=== PATIENT | male | born 1985 | race Asian ===

== ENCOUNTER 2017-09-28 11:23 | Emergency (ER) | payer SELFPAY ==
[2017-09-28] MEDS ORDERED: cefTRIAXone 250 MG VIAL IM ONE (11:31)
[2017-09-28] MEDS ORDERED: DOXYCYCLINE HYCLATE 100 MG CAP/TAB PO ONE (11:31)
[2017-09-28] MEDS ORDERED: KETOROLAC 30 MG/1 ML SDV IM ONE (11:33)
--- NOTE | 2017-09-28 11:35 | EDPHY ---
H & P Time Seen by Provider: 09/28/17 11:27 HPI/ROS: CHIEF COMPLAINT: Left stick HISTORY OF PRESENT ILLNESS: The patient is a 32-year-old healthy young man who comes to the emergency department complaining of left testicular pain that has been increasing daily for the last 4 days. No fever. He states that his urine and ejaculate EpiPen slightly yellow after taking azo. He has not had any spontaneous discharge. He is sexually active. He denies trauma. He states that he has pain in the cord above his testicle. REVIEW OF SYSTEMS: Constitutional: denies: chills, fever, recent illness, recent injury EENTM: denies: blurred vision, double vision, nose congestion Respiratory: denies: cough, shortness of breath Cardiac: denies: chest pain, irregular heart rate, lightheadedness, palpitations Gastrointestinal/Abdominal: denies: abdominal pain, diarrhea, nausea, vomiting, blood streaked stools Genitourinary: denies: dysuria, frequency, hematuria, pain Musculoskeletal: denies: joint pain, muscle pain Skin: denies: lesions, rash, jaundice, bruising Neurological: denies: headache, numbness, paresthesia, tingling, dizziness, weakness Hematologic/Lymphatic: denies: blood clots, easy bleeding, easy bruising Immunologic/allergic: denies: HIV/AIDS, transplant EXAM: GENERAL: Well-appearing, well-nourished and in no acute distress. HEAD: Atraumatic, normocephalic. EYES: Pupils equal round and reactive to light, extraocular movements intact, sclera anicteric, conjunctiva are normal. ENT: TMs normal, nares patent, oropharynx clear without exudates. Moist mucous membranes. NECK: Normal range of motion, supple without lymphadenopathy or JVD. LUNGS: Breath sounds clear to auscultation bilaterally and equal. No wheezes rales or rhonchi. HEART: Regular rate and rhythm without murmurs, rubs or gallops. ABDOMEN: Soft, nontender, normoactive bowel sounds. No guarding, no rebound. No masses appreciated. : Normal cremasteric reflex, left-sided epididymal tenderness and swelling. Mild erythema, no blue dot visible. BACK: No CVA tenderness, no spinal tenderness, step-offs or deformities EXTREMITIES: Normal range of motion, no pitting or edema. No clubbing or cyanosis. NEUROLOGICAL: Cranial nerves II through XII grossly intact. Normal speech, normal gait. 5/5 strength, normal movement in all extremities, normal sensation PSYCH: Normal mood, normal affect. SKIN: Warm, dry, normal turgor, no visible rashes or lesions. Source: Patient Exam Limitations: No limitations - Medical/Surgical History Hx Asthma: No Hx Chronic Respiratory Disease: No Hx Diabetes: No Hx Cardiac Disease: No Hx Renal Disease: No Hx Cirrhosis: No Hx Alcoholism: No - Family History Significant Family History: No pertinent family hx - Social History Alcohol Use: Sober Drug Use: None Constitutional: Initial Vital Signs Temperature (C) 36.6 C 09/28/17 11:34 Heart Rate 85 09/28/17 11:34 Respiratory Rate 20 09/28/17 11:34 Blood Pressure 110/55 L 09/28/17 11:34 O2 Sat (%) 97 09/28/17 11:34 O2 Delivery Mode Room Air Allergies/Adverse Reactions: No Known Allergies Allergy (Unverified 09/28/17 11:33) Home Medications: Medication Instructions Recorded levOFLOXACIN [levAQUIN] 750 mg PO DAILY #10 tab 09/28/17 Medical Decision Making - Diagnostics Imaging Results: Imaging Impressions Testicular Ultrasound 09/28/17 11:29 Impression: 1. Left epididymitis. 2. No testicular torsion. 3. No intratesticular masses. 4. Minimal bilateral hydroceles. Findings and recommendations discussed with Emergency Department physician, Dev Hill, at 1232 hours, 09/28/2017. Final report concurs with initial preliminary interpretation. Imaging: Discussed imaging studies w/ order desk caller Radiologist ED Course/Re-evaluation: 12:45 p.m. the patient has epididymitis. He does admit to having anal sex occasionally. I will switch him to Levaquin for 10 days. He has already had Rocephin. Differential Diagnosis: Partial list of the Differential diagnosis considered include but were not limited to; epididymitis, torsed testicle, torsed testicular appendix and although unlikely based on the history and physical exam, I also considered trauma, cellulitis, hernia. I discussed these differential diagnoses and the plan with the patient as well as the usual and expected course. The patient understands that the diagnosis is provisional and that in medicine we are not always correct and that further workup is often warranted. Usual and customary warnings were given. All of the patient's questions were answered. The patient was instructed to return to the emergency department should the symptoms at all worsen or return, otherwise to followup with the physician as we discussed. - Data Points Laboratory Results: 09/28/17 09/28/17 11:55 11:55 Urine Color YELLOW Urine Appearance CLOUDY Urine pH 6.0 (5.0-7.5) Ur Specific [place] 1.020 (1.002-1.030) Urine Protein 2+ H (NEGATIVE) Urine Ketones 2+ H (NEGATIVE) Urine Blood 2+ H (NEGATIVE) Urine Nitrate NEGATIVE (NEGATIVE) Urine Bilirubin NEGATIVE (NEGATIVE) Urine Urobilinogen 0.2 EU EU (0.2-1.0) Ur Leukocyte Esterase 3+ H (NEGATIVE) Urine RBC 10-15 /hpf H /hpf (0-3) Urine WBC >182 /hpf H /hpf (0-3) Ur Epithelial Cells NONE SEEN /lpf /lpf (NONE-1+) Urine Bacteria TRACE /hpf H /hpf (NONE SEEN) Urine Glucose NEGATIVE (NEGATIVE) C.trachomatis RNA (TMA) Pending N.gonorrhoeae RNA (TMA) Pending Medications Given: Discontinued Medications Ceftriaxone Sodium (Rocephin 250mg Vial) 250 mg IM EDNOW ONE PRN Reason: Protocol Stop: 09/28/17 11:32 Last Admin: 09/28/17 11:45 Dose: 250 mg Doxycycline Hyclate (Doxycycline Hyclate) 100 mg PO EDNOW ONE PRN Reason: Protocol Stop: 09/28/17 11:32 Last Admin: 09/28/17 11:47 Dose: 100 mg Ketorolac Tromethamine (Toradol) 30 mg IM EDNOW ONE Stop: 09/28/17 11:34 Last Admin: 09/28/17 11:46 Dose: 30 mg Levofloxacin (Levaquin) 500 mg PO EDNOW ONE PRN Reason: Protocol Stop: 09/28/17 12:46 Last Admin: 09/28/17 12:56 Dose: 500 mg Departure - Departure Disposition: Home, Routine, Self-Care Clinical Impression: Epididymitis, left Condition: Good Instructions: Levofloxacin (By mouth), Epididymitis (ED) Referrals: Unknown,Unknown [Unknown] - As per Instructions Benny Oneal MD [Medical Doctor] - As per Instructions Prescriptions: levOFLOXACIN [levAQUIN] 750 mg PO DAILY #10 tab
[2017-09-28 11:36] VITALS: TEMP 97.9; O2SAT 97
[2017-09-28 12:16] LABS: COLOR YELLOW; LEUKOCYTE ESTERASE,URINE 3+ (NEGATIVE); NITRITE,URINE NEGATIVE (NEGATIVE)
[2017-09-28 12:30] LABS: BACTERIA TRACE /hpf (NONE SEEN); WBC,URINE >182 /hpf (0-3)
[2017-09-28 13:06] VITALS: BP 155/77; PULSE 82; RESP 18
[2017-09-29 13:15] LABS: CHLAMYDIA AMPLIFICATION GENPRB POSITIVE (NEGATIVE)
== END 2017-09-28 13:06 | disposition home or self-care (01) ==
LOC: CED 11:23
DX: N45.1 Epididymitis (principal)
CPT/HCPCS: 76870-PO; 81003-PO; 81015-PO; J0696; J1885